=== PATIENT | male | born 1990 | race Caucasian/White ===

== ENCOUNTER 2017-05-02 09:13 | Observation (INO) | payer SELFPAY ==
[2017-05-02 09:22] VITALS: TEMP 99.6
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
[2017-05-02 13:48] VITALS: BP 123/79; PULSE 86; RESP 18
[2017-05-02 13:59] VITALS: O2SAT 99
== END 2017-05-02 14:01 | disposition home or self-care (01) ==
LOC: C.ER 09:13 → C.9OBSV 09:48
PROVIDERS: ADMIT Emergency Medicine; ATTEND Emergency Medicine
DX: F16.10 Hallucinogen abuse, uncomplicated (principal)
CPT/HCPCS: 82948; G0378; G0480